=== PATIENT | male | born 1965 | race Caucasian/White ===

== ENCOUNTER 2019-02-23 00:51 | Emergency (ER) | payer SELFPAY ==
[2019-02-23 00:57] VITALS: BP 175/123; BMI 21.3
[2019-02-23] MEDS ORDERED: HYDROCODON-ACE1 EAC7 PO (01:48)
== END 2019-02-23 02:07 | disposition home or self-care (01) ==
LOC: D.ER 00:51
DX: S61.210A Laceration without foreign body of right index finger without damage to nail, initial encounter (principal); W26.0XXA Contact with knife, initial encounter; Y93.89 Activity, other specified; Y92.019 Unspecified place in single-family (private) house as the place of occurrence of the external cause

== ENCOUNTER 2019-02-25 01:30 | Emergency (ER) | payer SELFPAY ==
[~2019-02-25] VITALS: Ht 172.7 cm; Wt 63.6 kg
[~2019-02-25 01:30] MED LIST: HYDROCODON-ACE1 EAC7 PO
== END 2019-02-25 02:26 | disposition home or self-care (01) ==
LOC: D.ER 01:30
DX: T81.33XA Disruption of traumatic injury wound repair, initial encounter (principal)